=== PATIENT | male | born 1940 | race Caucasian/White ===

== ENCOUNTER 2020-10-30 16:23 | Outpatient (CLI) | payer MEDICARE, SELFPAY ==
[2020-10-30 17:09] LABS: Anion Gap 11 mmol/L (8-16); Blood Urea Nitrogen 46 mg/dL (9-20); Calcium 9.2 mg/dL (8.4-10.2); Carbon Dioxide 33 mmol/L (22-30); Chloride 94 mmol/L (98-107); Estimated Glomerular Filt Rate 6; Glucose 228 mg/dL (65-110); Potassium 5.2 mmol/L (3.4-5.0); Sodium 138 mmol/L (137-145)
[2020-10-30 17:12] LABS: Partial Thromboplastin Time 32.2 SECONDS (22.3-36.8)
== END 2020-10-30 16:24 | disposition home or self-care (01) ==
PROVIDERS: PCP Internal Medicine; Visit Provider Anesthesiology
DX: N28.9 Disorder of kidney and ureter, unspecified (principal); E11.9 Type 2 diabetes mellitus without complications; Z51.81 Encounter for therapeutic drug level monitoring; Z79.899 Other long term (current) drug therapy
CPT/HCPCS: 36415; 80048; 85610; 85730

== ENCOUNTER 2020-11-06 02:19 | Day surgery (SDC) | payer MEDICARE, BC, SELFPAY ==
[2020-10-30 15:14] VITALS: BMI 24.7
--- NOTE | 2020-11-05 13:25 | PM.IMHP ---
H&P: HPI History of Present Illness Date/Time: 11/05/20 13:25 Patient presents for planned surgical procedures. No changes in symptoms no changes in medical history. Chief Complaint: Right-sided eustachian tube dysfunction right otitis media right ear pain Review of Systems Constitutional: Constitutional: Denies fatigue, Denies fever(s) and Denies lethargy Eyes: Eyes: Denies blurry vision and Denies change in vision ENT: Reports as per HPI Cardiovascular: Cardiovascular: Denies chest pain Respiratory: Respiratory: Denies cough Endocrine: Endocrine: Denies fatigue Hematologic/Lymphatic: Hematologic/Lymphatic: Denies easy bleeding, Denies easy bruising and Denies lymphadenopathy Allergic/Immunologic: Allergic/Immunologic: Denies seasonal rhinorrhea [facility] Family History Family History Father Diabetes mellitus Hypertension Sibling Diabetes mellitus Social History Social History Smoking status: Never smoker Second hand tobacco smoke exposure: No Alcohol intake: never Substance use: never Substance use type: does not use Spiritual care concerns: No Meds Home Medications and Allergies Home Medications Medication Instructions Recorded Confirmed Type atorvastatin 20 mg tablet 20 mg PO HS 10/16/20 10/30/20 History carvedilol 25 mg tablet 37.5 mg PO Q12H 10/16/20 10/30/20 History fluticasone fur. 100 mcg-umeclid 1 inh INHALATION DAILY 10/16/20 10/30/20 History 62.5 mcg-vilant 25 mcg inhalat.powder insulin lispro 100 unit/mL 16 unit SUBCUT TID ml 10/16/20 10/30/20 History subcutaneous pen losartan 100 mg tablet 100 mg PO DAILY 10/16/20 10/30/20 History famotidine 20 mg tablet 20 mg PO DAILY #30 tablet 10/28/20 10/30/20 Rx cholecalciferol (vitamin D3) 50 mcg PO DAILY 10/30/20 10/30/20 History [Vitamin D3] clonidine HCl 0.2 mg PO BID 10/30/20 10/30/20 History clonidine HCl 0.3 mg PO DAILY 10/30/20 10/30/20 History clopidogrel [Plavix] 75 mg PO DAILY 10/30/20 10/30/20 History latanoprost 1 drp EACH EYE QPM 10/30/20 10/30/20 History levothyroxine 25 mcg PO DAILY 10/30/20 10/30/20 History sevelamer carbonate 1,600 mg PO TID 10/30/20 10/30/20 History Allergies Allergy/AdvReac Type Severity Reaction Status Date / Time albumin colloid, human Allergy Unknown Unknown Verified 10/30/20 15:03 amlodipine Allergy Unknown Swelling Verified 10/30/20 15:03 hydralazine Allergy Unknown Shakiness Verified 10/30/20 15:03 iodine Allergy Unknown Anaphylaxis Verified 10/30/20 15:03 levofloxacin Allergy Unknown Shakiness Verified 10/30/20 15:03 tazobactam Allergy Unknown Unknown Verified 10/30/20 15:03 piperacillin [From Zosyn] AdvReac Unknown Verified 10/30/20 15:03 Exam Const: General: cooperative, healthy appearing, comfortable, well developed and alert HENMT: Head: normal to inspection, normocephalic and atraumatic Ears: hearing grossly normal bilaterally, external ears normal, right TM abnormal ( tube abutting retracted), TM normal on the left and EAC's normal General nose exam: Normal external nose present, Normal nares present, No nasal polyps present, Normal nasal mucous membranes and turbinates present and Normal septum present Face and sinus: normal facial exam Mouth: Yes Normal oral and palatal mucosa present, Yes lip normal, Yes tongue normal, Yes oropharynx normal and Yes moist mucous membranes Teeth and gingiva: dentition normal and gingiva normal Throat: posterior oropharynx normal, tonsils normal and uvula midline Eyes: General: appearance normal, both eyes and all related structures Periorbital: periorbital findings normal Eyelids: eyelids normal Conjunctivae: conjunctivae normal Sclera: sclerae normal Neck: Neck: normal visual inspection, full ROM and no lymphadenopathy Thyroid: thyroid normal Lymphatic: no lymphadenopathy noted Resp: Effort & Inspection: eli
--- NOTE | 2020-11-05 15:43 | WPDANESEPPF ---
Anes - Initial Pre Proc Eval Procedure: Operation Date: 11/06/20 13:00 Proposed Procedures p Removal Right Myringotomy Tube, Insertion Right Myringotomy Tube - Alexander Menendez MD s Right Eustachian Tube Dilation - Alexander Menendez MD Date/Time: 11/05/20 15:43 Surgeon: Alexander Menendez MD Pre Op Diagnosis: right chronic otitis media Patient Data Age: 80 Gender: M Height: 1.8 m Weight: 80.6 kg Allergies Allergy/AdvReac Type Severity Reaction Status Date / Time amlodipine Allergy Severe Swelling Verified 11/06/20 11:08 iodine Allergy Severe TOPICAL-THROAT Verified 11/06/20 11:08 SWELLING albumin colloid, human Allergy Unknown Unknown Verified 11/06/20 11:08 tazobactam Allergy Unknown Unknown Verified 10/30/20 15:03 hydralazine AdvReac Mild Shakiness Verified 11/06/20 11:08 levofloxacin AdvReac Mild Shakiness Verified 11/06/20 11:08 piperacillin [From Zosyn] AdvReac Unknown Unknown Verified 11/06/20 11:08 Home Medications Medication Instructions Recorded Confirmed Type atorvastatin 20 mg tablet 20 mg PO HS 10/16/20 11/06/20 History carvedilol 25 mg tablet 37.5 mg PO Q12H 10/16/20 11/06/20 History fluticasone fur. 100 mcg-umeclid 1 inh INHALATION DAILY 10/16/20 11/06/20 History 62.5 mcg-vilant 25 mcg inhalat.powder insulin lispro 100 unit/mL 16 unit SUBCUT TID ml 10/16/20 11/06/20 History subcutaneous pen losartan 100 mg tablet 100 mg PO DAILY 10/16/20 11/06/20 History famotidine 20 mg tablet 20 mg PO DAILY #30 tablet 10/28/20 11/06/20 Rx cholecalciferol (vitamin D3) 50 mcg PO DAILY 10/30/20 11/06/20 History [Vitamin D3] clonidine HCl 0.2 mg PO BID 10/30/20 11/06/20 History clonidine HCl 0.3 mg PO DAILY 10/30/20 11/06/20 History clopidogrel [Plavix] 75 mg PO DAILY 10/30/20 11/06/20 History latanoprost 1 drp EACH EYE QPM 10/30/20 11/06/20 History levothyroxine 25 mcg PO DAILY 10/30/20 11/06/20 History sevelamer carbonate 1,600 mg PO TID 10/30/20 11/06/20 History testosterone cypionate 200 mg IM [id number] 11/06/20 11/06/20 History Patient hx anesthesia problems: none Family hx anesthesia problems: none PMF Past Medical History Medical History (Updated 11/05/20 @ 15:46 by Felix Alcazar MD) CKD (chronic kidney disease) stage V requiring chronic dialysis COPD (chronic obstructive pulmonary disease) Diabetes Dysphagia ESRD (end stage renal disease) HD t//sa GERD (gastroesophageal reflux disease) Hyperlipidemia Hypertension Hypothyroidism Retained myringotomy tube in right ear Family History Family History Father Diabetes mellitus Hypertension Sibling Diabetes mellitus Social History Social History Smoking status: Never smoker Second hand tobacco smoke exposure: No Alcohol intake: never Substance use: never Substance use type: does not use Living arrangements: with family Spiritual care concerns: No Anes - Eval Final PreProcedure Day of Procedure 11/05/20 15:43 Patient weight: normal Heart: regular rate and rhythm Lungs: clear to auscultation and normal air movement Airway: Mallampati scale class II Neurological: alert and oriented Last oral intake: >/= 8 hours ASA classification: IV Emergent: no Anesthetic plan: proceed Anesthesia type and monitoring: general GIVS and LMA Informed Consent: The patient's anesthetic plan and its attendant risks and benefits were discussed with the patient/family/POA. Questions were solicited and answers provided to the satisfaction of the patient/family/POA.
[2020-11-06] VITALS (9 sets, daily range): BP systolic 156–190; BP diastolic 68–93; PULSE 60–65; RESP 14–20; TEMP 36.1–36.6; O2SAT 99–100
--- NOTE | 2020-11-06 09:52 | ECG_ITS ---
Measurements Intervals [place] Rate: 62 P: 57 WA: 280 QRS: 31 QRSD: 97 T: 94 QT: 423 QTc: 432 Interpretive Statements SINUS RHYTHM WITH FIRST DEGREE AV BLOCK BORDERLINE R WAVE PROGRESSION, ANTERIOR LEADS ST ELEVATION IN ANTERIOR LEADS, PROBABLY EARLY REPOLARIZATION PEAKED T WAVES- CONSIDER HYPERKALEMIA OR ISCHEMIA BORDERLINE ST-T WAVE ABNORMALITY- HIGH LATERAL LEADS ABNORMAL ECG Electronically Signed On 11-06-2020 11:48:34 CDT by Roderick Gabriel D.O.
[2020-11-06] MEDS: SODIUM CHLORIDE 0.9% IV 500 ML 30 ML IV CONT (11:45)
[2020-11-06 12:14] LABS: Anion Gap 11 mmol/L (8-16); Blood Urea Nitrogen 46 mg/dL (9-20); Calcium 9.4 mg/dL (8.4-10.2); Carbon Dioxide 30 mmol/L (22-30); Chloride 92 mmol/L (98-107); Estimated CRCL calculation 7 ml/min; Estimated Glomerular Filt Rate 6; Glucose 153 mg/dL (65-110); Potassium 5.2 mmol/L (3.4-5.0); Sodium 133 mmol/L (137-145)
--- NOTE | 2020-11-06 12:14 | WPDHPUPDATE1 ---
History and Physical Update Update Date/Time: 11/06/20 12:14 History and Physical has been reviewed, including an updated exam of the patient. There are NO changes in the patient's condition. Risks, benefits, and alternatives have been discussed and questions answered. Patient agrees to proceed with procedure.
[2020-11-06] MEDS: CIPROFLOXACIN HCL 0.3% OP SOLN 2.5 ML BTL 4 DROP EACH EAR (13:16)
[2020-11-06] MEDS: OXYMETAZOLINE HCL 0.05% NAS 15 ML BTL (*BKC) 1 SPRAY NASAL (13:29)
--- NOTE | 2020-11-06 13:39 | W.PM.PROC2 ---
Procedure Note - Detailed Date of Procedure 11/06/20 Pre-op Diagnosis right chronic otitis media, right eustachian tube dysfunction Post-op Diagnosis same Procedure Performed 1. Right-sided debbi microscopy 2. Right-sided tube removal 3. Right-sided myringotomy with T-tube insertion 4. Nasal endoscopy 5. Right-sided eustachian tube balloon dilation 6. Marsupialization /excision of right nasopharyngeal cyst Surgeon Alexander Menendez MD Anesthesia general (lma) Indications see above Findings fluid in the middle ear on the right tube not in place tube successfully placed by myself large nasopharyngeal cyst successful dilation of right eustachian tube Description of Procedure the patient was correctly identified and consent was verified in the preoperative holding area. The patient was then brought to the operating room and a time-out was performed. General anesthesia was induced and LMA was secured the patient's airway patient was then prepped and draped for the aforementioned procedures. No other time-out was performed. Debbi microscope was brought into the operative field and the right EAC was brought into view. Tube was removed was sitting in the canal. Serous effusion was noted in the right middle ear myringotomy was made effusion suctioned out and T-tube placed successfully. Drops were placed. Afrin-soaked pledgets were placed in the right nasal passages allowed to sit for 5 minutes. These were then removed. 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 The balloon device was inserted into the torus inflated to 12 atmospheres and held in place for 2 minutes this was then deflated and removed the nasopharyngeal cyst was opened widely and copious amounts of gel like secretion were suctioned out. Bleeding was controlled with application of Afrin-soaked pledgets. I performed all dictated portions of the procedure there were no complications care the patient was turned over to Anesthesiology. Estimated Blood Loss 1 Drains No Packing No Pathology yes Complications No immediate complications Condition stable Disposition PACU
[2020-11-06 13:48] LABS: Glucose Point of Care 128 mg/dl (65-105)
== END 2020-11-06 15:45 | disposition home or self-care (01) ==
PROVIDERS: Anesthesiology; PCP Internal Medicine; Visit Provider Otolaryngology
PROC: (CPT 69424; principal; 2020-11-06 13:00)
PROC: (CPT 69436; 2020-11-06 13:00)
DX: H66.91 Otitis media, unspecified, right ear (principal); H69.81 Other specified disorders of Eustachian tube, right ear; J39.2 Other diseases of pharynx; J44.9 Chronic obstructive pulmonary disease, unspecified; I12.0 Hypertensive chronic kidney disease with stage 5 chronic kidney disease or end stage renal disease; E11.22 Type 2 diabetes mellitus with diabetic chronic kidney disease; N18.6 End stage renal disease; Z99.2 Dependence on renal dialysis; E78.5 Hyperlipidemia, unspecified; E03.9 Hypothyroidism, unspecified; K21.9 Gastro-esophageal reflux disease without esophagitis; R13.10 Dysphagia, unspecified; Z79.4 Long term (current) use of insulin; Z79.02 Long term (current) use of antithrombotics/antiplatelets
CPT/HCPCS: 69436; 42808; 36415; 80048; 82948; 88305; 93005; A9270; C1726; J2405; J2704; J3010; J7040